=== PATIENT | male | born 1940 | race Caucasian/White ===

== ENCOUNTER 2018-05-27 19:00 | Inpatient (IN) | payer OTHER ==
[~2018-05-27] VITALS: Ht 177.8 cm; Wt 70.0 kg
[2018-05-27 19:02] VITALS: Ht 177.8 cm; Wt 70.0 kg
[2018-05-27 19:38] LABS: BASOPHIL % 0.2 % (0-2); PLATELET COUNT 141 x10^3mcL (130-400); RED CELL DISTRIBUTION WIDTH 13.8 % (11.5-14.5)
[2018-05-27 19:41] LABS: CARBON DIOXIDE 33.9 mmol/L (21-32); CHLORIDE SERUM 96 mmol/L (98-107); CREATININE SERUM 1.2 mg/dL (0.7-1.3); GLUCOSE SERUM 134 mg/dL (74-106); POTASSIUM SERUM 3.8 mmol/L (3.5-5.1); SODIUM SERUM 135 mmol/L (136-145)
[2018-05-27 19:46] LABS: ALBUMIN 4.2 g/dL (3.4-5.0); ALKALINE PHOSPHATASE 92 U/L (46-116); ALT/SGPT 25 U/L (16-63); AST/SGOT 18 U/L (15-37); BILIRUBIN TOTAL 0.9 mg/dL (0.20-1.00); LIPASE 312 IU/L (73-393); TOTAL PROTEIN, SERUM 7.9 g/dL (6.4-8.2)
[2018-05-27] MEDS ORDERED: REQUIP0.5 MG PO (21:25)
[2018-05-27] MEDS ORDERED: GABAPENTIN400 M1 PO (21:26)
[2018-05-28 00:09] VITALS: BP 102/65
[2018-05-28 04:41] VITALS: BP 100/64
[2018-05-28 06:29] LABS: BASOPHIL % 0.1 % (0-2); PLATELET COUNT 150 x10^3mcL (130-400)
[2018-05-28 06:41] LABS: RED CELL DISTRIBUTION WIDTH 14.6 % (11.5-14.5)
[2018-05-28 06:50] LABS: ALBUMIN 3.8 g/dL (3.4-5.0); ALKALINE PHOSPHATASE 81 U/L (46-116); ALT/SGPT 22 U/L (16-63); AST/SGOT 15 U/L (15-37); CALCIUM 9.4 mg/dL (8.5-10.1); CARBON DIOXIDE 31.4 mmol/L (21-32); CHLORIDE SERUM 99 mmol/L (98-107); CREATININE SERUM 1.1 mg/dL (0.7-1.3); GLUCOSE SERUM 113 mg/dL (74-106); PHOSPHOROUS 4.1 mg/dL (2.5-4.9); SODIUM SERUM 136 mmol/L (136-145); TOTAL PROTEIN, SERUM 7.4 g/dL (6.4-8.2)
[2018-05-28 08:19] VITALS: BP 115/71
[2018-05-28 16:33] VITALS: BP 94/55
[2018-05-28 18:30] VITALS: BP 112/55
[2018-05-28 21:17] VITALS: BP 99/58
[2018-05-29 04:51] VITALS: BP 121/52
[2018-05-29 06:50] LABS: RED CELL DISTRIBUTION WIDTH 14.4 % (11.5-14.5)
[2018-05-29 07:01] LABS: BASOPHIL % 0 % (0-2); PLATELET COUNT 115 x10^3mcL (130-400)
[2018-05-29 07:05] LABS: CALCIUM 8.9 mg/dL (8.5-10.1); CARBON DIOXIDE 30.7 mmol/L (21-32); CHLORIDE SERUM 103 mmol/L (98-107); CREATININE SERUM 1.1 mg/dL (0.7-1.3); GLUCOSE SERUM 148 mg/dL (74-106); MAGNESIUM 1.9 mg/dL (1.8-2.4); POTASSIUM SERUM 4.3 mmol/L (3.5-5.1); SODIUM SERUM 141 mmol/L (136-145)
[2018-05-29 09:21] VITALS: BP 111/55
[2018-05-29 16:23] VITALS: BP 96/54
[2018-05-29 21:01] VITALS: BP 90/50
[2018-05-30 05:40] VITALS: BP 100/52
[2018-05-30 07:45] LABS: ALKALINE PHOSPHATASE 58 U/L (46-116); ALT/SGPT 18 U/L (16-63); AST/SGOT 16 U/L (15-37); BASOPHIL % 0.3 % (0-2); BILIRUBIN TOTAL 0.8 mg/dL (0.20-1.00); CALCIUM 8.4 mg/dL (8.5-10.1); CARBON DIOXIDE 24.3 mmol/L (21-32); CHLORIDE SERUM 107 mmol/L (98-107); GLUCOSE SERUM 113 mg/dL (74-106); MAGNESIUM 1.9 mg/dL (1.8-2.4); PHOSPHOROUS 1.8 mg/dL (2.5-4.9); POTASSIUM SERUM 3.8 mmol/L (3.5-5.1); SODIUM SERUM 143 mmol/L (136-145); TOTAL PROTEIN, SERUM 6.3 g/dL (6.4-8.2)
[2018-05-30 07:46] LABS: PLATELET COUNT 103 x10^3mcL (130-400); RED CELL DISTRIBUTION WIDTH 14.6 % (11.5-14.5)
[2018-05-30 08:20] VITALS: BP 129/60
[2018-05-30 13:14] VITALS: BP 118/62
[2018-05-30 13:59] VITALS: BP 118/62
== END 2018-05-30 14:16 | disposition home or self-care (01) | DRG 390 ==
LOC: ED 19:00 → MU 22:46
PROVIDERS: Emergency Medicine; Internal Medicine Pulmonary Disease
DX: K56.50 Intestinal adhesions [bands], unspecified as to partial versus complete obstruction (principal); G20 Parkinson's disease; I50.9 Heart failure, unspecified; Z85.038 Personal history of other malignant neoplasm of large intestine; G62.9 Polyneuropathy, unspecified; Z88.8 Allergy status to other drugs, medicaments and biological substances; Z87.891 Personal history of nicotine dependence
CPT/HCPCS: 82962; C9113; J2270; J2405; J7042; J7120; Q0092; Q9967

== ENCOUNTER 2018-05-31 07:06 | Observation (INO) | payer OTHER ==
[~2018-05-31] VITALS: Ht 180.3 cm; Wt 72.2 kg
[~2018-05-31 07:06] MED LIST: GABAPENTIN400 M1 PO; REQUIP0.5 MG PO
[2018-05-31 08:35] LABS: PLATELET COUNT 131 x10^3mcL (130-400); RED CELL DISTRIBUTION WIDTH 14.2 % (11.5-14.5)
[2018-05-31 08:57] LABS: CARBON DIOXIDE 26.3 mmol/L (21-32); CHLORIDE SERUM 105 mmol/L (98-107); CREATININE SERUM 1.1 mg/dL (0.7-1.3); GLUCOSE SERUM 121 mg/dL (74-106); SODIUM SERUM 138 mmol/L (136-145)
[2018-05-31 09:01] LABS: ALBUMIN 3.6 g/dL (3.4-5.0); ALKALINE PHOSPHATASE 83 U/L (46-116); ALT/SGPT 33 U/L (16-63); AMYLASE 40 U/L (25-115); AST/SGOT 28 U/L (15-37); BILIRUBIN TOTAL 1.26 mg/dL (0.20-1.00); LIPASE 196 IU/L (73-393); TOTAL PROTEIN, SERUM 7.7 g/dL (6.4-8.2)
[2018-05-31 09:05] LABS: BASOPHIL % 0 % (0-2)
[2018-05-31 09:45] LABS: UA SPECIFIC GRAVITY >=1.030 (1.005-1.035); microscopic required? YES; urine erythrocyte 1+ (NEGATIVE)
[2018-05-31 13:57] VITALS: BP 132/69
[2018-05-31 17:41] VITALS: BP 127/60
[2018-05-31 21:53] VITALS: BP 108/60
[2018-06-01 00:45] LABS: FREE T4 1.31 ng/dL (0.76-1.46); FREE THYROXINE INDEX 3.5 ug/dL (1.4-4.5); T4(THYROXINE) 9.6 ug/dL (4.7-13.3)
[2018-06-01 00:50] LABS: T3 TOTAL 0.79 ng/mL
[2018-06-01 06:10] VITALS: BP 133/74
[2018-06-01 07:27] LABS: BASOPHIL % 0.2 % (0-2); PLATELET COUNT 134 x10^3mcL (130-400); RED CELL DISTRIBUTION WIDTH 14.4 % (11.5-14.5)
[2018-06-01 07:49] LABS: CALCIUM 8.4 mg/dL (8.5-10.1); CARBON DIOXIDE 25.6 mmol/L (21-32); CHLORIDE SERUM 108 mmol/L (98-107); CREATININE SERUM 0.9 mg/dL (0.7-1.3); GLUCOSE SERUM 152 mg/dL (74-106); MAGNESIUM 1.7 mg/dL (1.8-2.4); POTASSIUM SERUM 3.8 mmol/L (3.5-5.1); SODIUM SERUM 142 mmol/L (136-145)
[2018-06-01 08:00] LABS: BILIRUBIN DIRECT 0.28 mg/dL (0.0-0.2); BILIRUBIN TOTAL 0.86 mg/dL (0.20-1.00); TOTAL PROTEIN, SERUM 6.5 g/dL (6.4-8.2)
[2018-06-01 08:01] LABS: ALBUMIN 2.9 g/dL (3.4-5.0)
[2018-06-01 09:25] VITALS: BP 138/71
[2018-06-01 17:25] VITALS: BP 141/78
[2018-06-02 05:49] VITALS: BP 142/76
[2018-06-02 07:36] LABS: PLATELET COUNT 138 x10^3mcL (130-400); RED CELL DISTRIBUTION WIDTH 14.3 % (11.5-14.5)
[2018-06-02 07:45] LABS: BASOPHIL % 0 % (0-2)
[2018-06-02 07:58] LABS: CALCIUM 8.4 mg/dL (8.5-10.1); CARBON DIOXIDE 24.4 mmol/L (21-32); CHLORIDE SERUM 112 mmol/L (98-107); GLUCOSE SERUM 118 mg/dL (74-106); POTASSIUM SERUM 3.7 mmol/L (3.5-5.1); SODIUM SERUM 146 mmol/L (136-145)
[2018-06-02 09:50] VITALS: BP 116/63
[2018-06-02 17:29] VITALS: BP 108/65
[2018-06-02 21:01] VITALS: BP 107/61
[2018-06-02 21:08] VITALS: BP 108/58
[2018-06-03 05:20] VITALS: BP 118/57
[2018-06-03 05:53] LABS: PLATELET COUNT 142 x10^3mcL (130-400); RED CELL DISTRIBUTION WIDTH 14.5 % (11.5-14.5)
[2018-06-03 06:21] LABS: CALCIUM 8.4 mg/dL (8.5-10.1); CARBON DIOXIDE 26.5 mmol/L (21-32); CHLORIDE SERUM 112 mmol/L (98-107); CREATININE SERUM 0.9 mg/dL (0.7-1.3); GLUCOSE SERUM 107 mg/dL (74-106); POTASSIUM SERUM 3.4 mmol/L (3.5-5.1); SODIUM SERUM 146 mmol/L (136-145)
[2018-06-03 07:16] LABS: BASOPHIL % 0 % (0-2)
[2018-06-03 08:17] VITALS: Ht 180.3 cm; Wt 72.2 kg
[2018-06-03 08:30] VITALS: BP 105/53
[2018-06-03 17:10] VITALS: BP 120/56
[2018-06-03 21:08] VITALS: BP 140/72
[2018-06-04 05:44] VITALS: BP 140/70
[2018-06-04 07:17] VITALS: BP 140/70
[2018-06-04 09:15] VITALS: BP 125/64
== END 2018-06-04 10:12 | disposition home or self-care (01) | DRG 392 ==
LOC: ED 07:06 → MU 12:54
PROVIDERS: Emergency Medicine; Internal Medicine Pulmonary Disease
DX: R19.7 Diarrhea, unspecified (principal); K56.7 Ileus, unspecified; E86.9 Volume depletion, unspecified; K80.20 Calculus of gallbladder without cholecystitis without obstruction; G20 Parkinson's disease; Z92.3 Personal history of irradiation; Z68.21 Body mass index [BMI] 21.0-21.9, adult; Z87.891 Personal history of nicotine dependence; Z92.21 Personal history of antineoplastic chemotherapy; Z85.030 Personal history of malignant carcinoid tumor of large intestine
CPT/HCPCS: 84439; G0378; J1644; J2405; J2765; J7030; Q0092

== ENCOUNTER 2020-02-13 08:27 | Emergency (ER) | payer OTHER ==
[~2020-02-13] VITALS: Ht 175.3 cm; Wt 68.5 kg
[2020-02-13 08:30] VITALS: Ht 175.3 cm; Wt 68.5 kg
[2020-02-13 09:36] LABS: CARBON DIOXIDE 28.2 mmol/L (21-32); CHLORIDE SERUM 100 mmol/L (98-107); CREATININE SERUM 1.1 mg/dL (0.7-1.3); GLUCOSE SERUM 119 mg/dL (74-106); POTASSIUM SERUM 4.4 mmol/L (3.5-5.1); SODIUM SERUM 136 mmol/L (136-145)
[2020-02-13 09:41] LABS: ALBUMIN 3.9 g/dL (3.4-5.0); ALKALINE PHOSPHATASE 88 U/L (46-116); ALT/SGPT 15 U/L (16-63); AST/SGOT 26 U/L (15-37); BILIRUBIN TOTAL 0.65 mg/dL (0.20-1.00); C REACTIVE PROTEIN 1.2 mg/dL (<=0.9); LACTIC DEHYDROGENASE (LDH) 192 U/L (100-190); TOTAL PROTEIN, SERUM 7.5 g/dL (6.4-8.2)
[2020-02-13 09:42] LABS: microscopic required? NO
[2020-02-13 10:15] LABS: BASOPHIL % 0.2 % (0-2); PLATELET COUNT 137 x10^3mcL (130-400); RED CELL DISTRIBUTION WIDTH 14.3 % (11.5-14.5)
[2020-02-13 10:51] LABS: urine erythrocyte NEGATIVE (NEGATIVE)
[2020-02-13 11:27] VITALS: BP 120/72
== END 2020-02-13 11:27 | disposition left against medical advice (07) ==
LOC: ED 08:27
PROVIDERS: Specialist
DX: R07.89 Other chest pain (principal); R50.9 Fever, unspecified; R61 Generalized hyperhidrosis; I50.9 Heart failure, unspecified; Z90.89 Acquired absence of other organs; Z88.8 Allergy status to other drugs, medicaments and biological substances; Z85.038 Personal history of other malignant neoplasm of large intestine
CPT/HCPCS: 36600; 83880; 84439; 87804; J7030; Q0092; U0003-CS

== ENCOUNTER 2020-07-11 13:00 | Emergency (ER) | payer OTHER ==
[~2020-07-11] VITALS: Ht 172.7 cm; Wt 59.0 kg
[2020-07-11 13:02] VITALS: Ht 172.7 cm; Wt 59.0 kg
[2020-07-11 17:31] LABS: CARBON DIOXIDE 27.2 mmol/L (21-32); CHLORIDE SERUM 100 mmol/L (98-107); CREATININE SERUM 1.1 mg/dL (0.7-1.3); GLUCOSE SERUM 98 mg/dL (74-106); POTASSIUM SERUM 4.2 mmol/L (3.5-5.1); SODIUM SERUM 135 mmol/L (136-145)
[2020-07-11 17:36] LABS: ALBUMIN 4.2 g/dL (3.4-5.0); ALKALINE PHOSPHATASE 97 U/L (46-116); ALT/SGPT 20 U/L (16-63); AST/SGOT 39 U/L (15-37); BILIRUBIN TOTAL 0.9 mg/dL (0.20-1.00); TOTAL PROTEIN, SERUM 7.9 g/dL (6.4-8.2)
[2020-07-11 17:50] LABS: BASOPHIL % 0.2 % (0.2-1.5)
[2020-07-11 18:13] LABS: PLATELET COUNT 96 x10^3mcL (152-348); RED CELL DISTRIBUTION WIDTH 15.7 % (12.1-16.2)
[2020-07-11 20:21] VITALS: BP 136/75
== END 2020-07-11 20:21 | disposition home or self-care (01) ==
LOC: ED 13:00
PROVIDERS: Emergency Medicine
DX: U07.1 COVID-19 (principal); I50.9 Heart failure, unspecified; R19.7 Diarrhea, unspecified; R11.10 Vomiting, unspecified; Z90.89 Acquired absence of other organs; Z85.038 Personal history of other malignant neoplasm of large intestine; Z88.8 Allergy status to other drugs, medicaments and biological substances
CPT/HCPCS: 85378; M0239; Q0239